=== PATIENT | female | born 1970 | race African-American/Black ===

== ENCOUNTER 2017-06-15 18:21 | Emergency (ER) | payer MEDICAID, OTHER ==
[~2017-06-15] VITALS: Ht 177.8 cm; Wt 86.2 kg
[2017-06-15] MEDS ORDERED: IBUPROFEN PO (18:30)
[2017-06-15] MEDS ORDERED: PENICILLIN G BENZATHINE 2.4 MMU/4 ML DISP.SYRIN IM ONE ×2 (19:00→19:37)
[2017-06-15] MEDS ORDERED: DEXAMETHASONE SOD PHOSPHATE 4 MG INJ IM ONE (19:00)
[2017-06-15] MEDS ORDERED: HYDROMORPHONE 1 MG/1 ML DISP.SYRIN IM ONE (19:00)
[2017-06-15] MEDS ORDERED: ONDANSETRON ODT 4 MG TAB.RAPDIS SL ONE (19:00)
[2017-06-15] MEDS ORDERED: ONDANSETRON 4 MG/2 ML VIAL ONE (19:37)
[2017-06-15] MEDS ORDERED: HYDROMORPHONE 2 MG/1 ML DISP.SYRIN ONE (19:37)
[2017-06-15] MEDS ORDERED: DEXAMETHASONE SOD PHOSPHATE 4 MG INJ ONE (19:37)
[2017-06-15] MEDS ORDERED: ONDANSETRON ODT 4 MG TAB.RAPDIS ONE (19:38)
[2017-06-15] MEDS ORDERED: METOCLOPRAMIDE HCL 10 MG/2 ML VIAL IM ONE (20:15)
[2017-06-15] MEDS ORDERED: diphenhydrAMINE 50 MG/1 ML VIAL IM ONE (20:15)
[2017-06-15] MEDS ORDERED: diphenhydrAMINE 50 MG/1 ML VIAL ONE (20:23)
[2017-06-15] MEDS ORDERED: METOCLOPRAMIDE HCL 10 MG/2 ML VIAL ONE (20:23)
--- NOTE | 2017-06-15 20:27 | NUR ---
Patient discharged to home in stable conditon. Written and verbal after care instructions given. Patient verbalizes understanding of instructions.
== END 2017-06-15 20:28 | disposition home or self-care (01) ==
LOC: ER 18:23
DX: J03.90 Acute tonsillitis, unspecified (principal); F17.200 Nicotine dependence, unspecified, uncomplicated; Z88.5 Allergy status to narcotic agent
CPT/HCPCS: 96372 ×3; 99284; A4663; J1100; J1170; J1200; J2765; Q0162; J2405

== ENCOUNTER 2021-02-09 06:07 | Emergency (ER) | payer MEDICAID, OTHER ==
[~2021-02-09] VITALS: Ht 180.3 cm; Wt 90.7 kg
[~2021-02-09 06:07] MED LIST: IBUPROFEN PO
--- NOTE | 2021-02-09 07:24 | NUR ---
Dr Knowles at the bedside for MSE.
[2021-02-09] MEDS ORDERED: DEXAMETHASONE 4 MG TABLET PO ONE (07:30)
[2021-02-09] MEDS ORDERED: DEXAMETHASONE 1 MG TABLET ONE (07:39)
--- NOTE | 2021-02-09 08:00 | NUR ---
Checked pt's 02 sat on excertion, remains above 95%. Dr Knowles made aware.
[2021-02-09] MEDS ORDERED: BUDE180A INH (08:13)
[2021-02-09] MEDS ORDERED: DEXA6TAB6 PO (08:13)
[2021-02-09] MEDS ORDERED: ALBU18HF2 INH (08:13)
--- NOTE | 2021-02-09 08:29 | NUR ---
Patient discharged to home in stable condition. Written and verbal after care instructions given. Patient verbalizes understanding of instructions. Stressed follow up or return to ER for worsening s/s.
[2021-02-09 08:42] VITALS: BP 135/79
== END 2021-02-09 08:43 | disposition home or self-care (01) ==
LOC: ER 06:12
DX: U07.1 COVID-19 (principal); J12.82 Pneumonia due to coronavirus disease 2019; F17.200 Nicotine dependence, unspecified, uncomplicated; R00.1 Bradycardia, unspecified; I70.0 Atherosclerosis of aorta; R03.0 Elevated blood-pressure reading, without diagnosis of hypertension
CPT/HCPCS: 71045; 93005; 99284; J8540; A4663

== ENCOUNTER 2022-01-06 12:45 | Emergency (ER) | payer MEDICAID ==
[~2022-01-06] VITALS: Ht 180.3 cm; Wt 96.6 kg
[~2022-01-06 12:45] MED LIST changes: +ALBU18HF2 INH; +BUDE180A INH; +DEXA6TAB6 PO
--- NOTE | 2022-01-06 13:09 | NUR ---
Patient discharged to home in stable condition. Written and verbal after care instructions given. Patient verbalizes understanding of instructions. Stressed follow up or return to ER for worsening s/s. Addendum: 01/06/22 at 1310 by [email or web address] Wrong patient.
--- NOTE | 2022-01-06 13:15 | NUR ---
Per ER MD, asked patient to walk in place and to monitor Sp02/HR for 1 minute. Patient walked in placed for 1 minute with no distress or desaturation noted Sp02 remained >95%. Heart rate remained within normal limits. ER MD made aware.
--- NOTE | 2022-01-06 13:21 | NUR ---
X-ray at the bedside.
[2022-01-06 13:31] LABS: HEMATOCRIT 42.1 % (31.2-41.9); MEAN CORPUSCULAR HEMOGLOBIN 28.2 uug (24.7-32.8); MEAN CORPUSCULAR VOLUME 85.1 fL (75.5-95.3); PLATELET COUNT (AUTO) 235 K/uL (179-408)
[2022-01-06 13:40] LABS: CARBON DIOXIDE 24 mmol/L (21-32); CHLORIDE 100 mmol/L (98-107); CREATININE 1.9 mg/dL (0.6-1.3); GLUCOSE 152 mg/dL (74-106); POTASSIUM 3.1 mmol/L (3.5-5.1); UREA NITROGEN, BLOOD 27 mg/dL (7-18)
[2022-01-06] MEDS ORDERED: ACETAMINOPHEN ES 500 MG TABLET ONE (13:40)
[2022-01-06] MEDS ORDERED: IV NS 1000 ML 1,000 ML IV ONE (13:45)
[2022-01-06] MEDS ORDERED: ACETAMINOPHEN ES 500 MG TABLET PO ONE (13:45)
[2022-01-06 13:53] LABS: ALANINE AMINOTRANSFERASE 80 U/L (14-59); ALKALINE PHOSPHATASE 109 U/L (50-136); ASPARTATE AMINOTRANSFERASE 78 U/L (15-37); BILIRUBIN,TOTAL 1.4 mg/dL (0.2-1.0); LACTATE DEHYDROGENASE 223 U/L (81-234); TOTAL PROTEIN, SERUM 9.5 g/dL (6.4-8.2)
[2022-01-06 19:08] VITALS: BP 136/98
== END 2022-01-06 17:18 | disposition home or self-care (01) ==
LOC: ER 12:45
DX: U07.1 COVID-19 (principal); R07.9 Chest pain, unspecified; N28.9 Disorder of kidney and ureter, unspecified; R00.0 Tachycardia, unspecified; J45.909 Unspecified asthma, uncomplicated; R79.1 Abnormal coagulation profile; R79.82 Elevated C-reactive protein (CRP)
CPT/HCPCS: 99285; 96360; 71045; 96361; 87426; 80053; 85385; 83880; 83615; 85025; 84145; 85379; 86140; 87400; 87040 ×2; 84484 ×2; 36415; 93005; 83605; J7040; A4663; A9150